=== PATIENT | male | born 1990 | race Two or more races ===

== ENCOUNTER 2022-03-06 03:22 | Emergency (ER) | payer OTHER ==
[~2022-03-06] VITALS: Ht 175.3 cm; Wt 83.2 kg
[~2022-03-06 03:22] MED LIST: RALTEGRAVIR 400 MG TAB (ISENTRESS) PO SCH; TRUVADA 200MG/300MG TABLET PO SCH
[2022-03-06 03:23] VITALS: BP 133/71
[2022-03-06] MEDS ORDERED: AUGMENTIN 875 MG TAB PO ONE (05:25)
[2022-03-06] MEDS ORDERED: EXPOSURE KIT-ADULT 7 DAY SUPPLY PO ONE (06:20)
[2022-03-06] MEDS ORDERED: HEPATITIS B VACCINE 20MCG/ML 1ML SYRINGE (ADULT DOSE) IM ONE (06:20)
[2022-03-06] MEDS ORDERED: EMTR1TAB16 PO (06:28)
[2022-03-06] MEDS ORDERED: RALT40TA PO (06:28)
[2022-03-06] MEDS ORDERED: TRUVADA 200MG/300MG TABLET PO ONE (06:40)
[2022-03-06] MEDS ORDERED: RALTEGRAVIR 400 MG TAB (ISENTRESS) PO ONE (06:40)
[2022-03-06 06:58] LABS: BASO % 0.3 % (0.0-1.0); EOS # 0.1 10^3/uL (0.0-0.5); EOS % 0.9 % (0.0-3.0); HEMATOCRIT 42.2 % (42.0-52.0); HEMOGLOBIN 13.3 g/dl (13.5-17.5); LYMPH # 1.4 10^3/uL (1.5-5.0); LYMPH % 24.4 % (24.0-44.0); MEAN CORPUSCULAR HEMOGLOBIN 29.6 pg (27.0-33.0); MEAN CORPUSCULAR HGB CONC 31.5 g/dl (32.0-36.5); MONO # 0.5 10^3/uL (0.0-0.8); MONO % 9.3 % (2.0-8.0); NEUTROPHILS # 3.8 10^3/uL (1.5-8.5); NEUTROPHILS % 64.9 % (36.0-66.0); PLATELET COUNT, AUTOMATED 251 10^3/uL (150-450); RED BLOOD COUNT 4.49 10^6/uL (4.30-6.10); WHITE BLOOD COUNT 5.8 10^3/uL (4.0-10.0)
[2022-03-06 07:30] LABS: ALT/SGPT 36 U/L (12-78); BILIRUBIN,TOTAL 0.3 MG/DL (0.2-1.0); BLOOD UREA NITROGEN 16 MG/DL (7-18); CALCIUM LEVEL 9.7 MG/DL (8.5-10.1); CARBON DIOXIDE LEVEL 27 MEQ/L (21-32); CHLORIDE LEVEL 109 MEQ/L (98-107); CREATININE FOR GFR 1.32 MG/DL (0.70-1.30); GLOMERULAR FILTRATION RATE > 60.0 (>60); GLUCOSE, FASTING 84 MG/DL (70-100); POTASSIUM SERUM 4.3 MEQ/L (3.5-5.1); SODIUM LEVEL 144 MEQ/L (136-145); TOTAL PROTEIN 7.1 GM/DL (6.4-8.2)
[2022-03-06 11:15] LABS: HEPATITIS B SURFACE ANTIBODY POSITIVE (POSITIVE)
[2022-03-06 11:25] LABS: HEPATITIS B SURFACE ANTIGEN NEGATIVE (NEGATIVE)
[2022-03-06 11:54] LABS: HEPATITIS C VIRUS ABY INDEX 0.1 INDEX (<0.8)
[2022-03-06 11:55] LABS: HIV 1&2 SCREEN CENTAUR NEGATIVE (NEGATIVE)
== END 2022-03-06 07:18 | disposition home or self-care (01) ==
LOC: M ED 03:22
DX: S61.551A Open bite of right wrist, initial encounter (principal); Z77.21 Contact with and (suspected) exposure to potentially hazardous body fluids; Y04.1XXA Assault by human bite, initial encounter; Y92.9 Unspecified place or not applicable; Y93.9 Activity, unspecified; Y99.1 Military activity; Z79.899 Other long term (current) drug therapy; Z23 Encounter for immunization